=== PATIENT | female | born 1995 | race Caucasian/White ===

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

== ENCOUNTER 2017-07-28 19:56 | Emergency (ER) | payer OTHER ==
--- NOTE | 2017-07-28 20:54 | ED UPPER/LOWER EXTREMITY COMPL ---
History of Present Illness General Chief Complaint: Laceration Procedure Stated Complaint: L INDEX FINGER LAC Source: patient Exam Limitations: no limitations Vital Signs & Intake/Output Vital Signs & Intake/Output Vital Signs Date Time Temp Pulse Resp B/P B/P Pulse O2 O2 Flow FiO2 Mean Ox Delivery Rate 07/28 2125 98.0 82 20 126/87 98 Room Air 07/28 2054 98.2 80 16 118/70 98 Room Air Room Air Allergies Coded Allergies: No Known Allergies (07/28/17) Reconcile Medications No Known Home Medications Triage Nurses Notes Reviewed? yes Onset: Abrupt Duration: constant Timing: single episode today Severity: moderate Severity Numbers: 5 : No Patient currently breastfeeds: No HPI: Patient is a 21-year-old female who presents to emergency room stating that today she actually cut the distal aspect of her left second digit index finger with a knife resulting in a skin avulsion and bleeding was controlled prior to arrival. Patient states that tetanus is up-to-date. Patient is right arm dominant. (Ivan Handy) Past History Travel History Traveled to [place] past 21 day No Medical History Any Pertinent Medical History? none Neurological: NONE EENT: NONE Cardiovascular: NONE Respiratory: NONE Gastrointestinal: NONE Hepatic: NONE Renal: NONE Musculoskeletal: NONE Psychiatric: NONE Endocrine: NONE Blood Disorders: NONE Cancer(s): NONE RUBBER OFF/Reproductive: NONE Surgical History Surgical History: non-contributory Psychosocial History What is your primary language Guatemalan Tobacco Use: Never used ETOH Use: denies use Illicit Drug Use: denies illicit drug use Family History Hx Contributory? No (Ivan Handy) Review of Systems Review of Systems Constitutional: Reports: no symptoms. EENTM: Reports: no symptoms. Respiratory: Reports: no symptoms. Cardiovascular: Reports: no symptoms. Gastrointestinal/Abdominal: Reports: no symptoms. Genitourinary: Reports: no symptoms. Musculoskeletal: Reports: see HPI. Skin: Reports: see HPI. Neurological/Psychological: Reports: no symptoms. Hematologic/Endocrine: Reports: see HPI. Immunological: Reports: no symptoms. All Other Systems: Reviewed and Negative (Ivan Handy) Physical Exam Physical Exam General Appearance: no apparent distress, alert, comfortable Head: atraumatic Eyes: Bilateral: normal appearance. Ears, Nose, Throat: hearing grossly normal Neck: normal inspection Cardiovascular/Respiratory: no respiratory distress Peripheral Pulses: 2+ radial (L) Neurologic/Tendon: normal sensation, normal motor functions, normal tendon functions, responds to pain, no evidence tendon injury, no pulse deficit Skin: normal color Diagram Hands Front 1) Noted 8 mm superficial skin avulsion with no exposed bone no exposed tendon. The range of motion with flexion and extension full resisted range of motion with flexion and extension no tendon deficit (Ivan Handy) Progress Differential Diagnosis: arterial insufficiency, compartment syndrome, contusion, dislocation, DVT, fracture, gout, septic arthritis, sprain, tendon injury Plan of Care: Due to history of present illness and exam findings there is no suspicion of fracture or tendon deficit. The wound was irrigated with sterile water and peroxide. I applied one layer of KALTOSTAT with bandage. PRE/Post neurovascular was intact Bleeding was controlled prior to discharge (Ivan Handy) Departure Departure Disposition: HOME OR SELF CARE Condition: Stable Clinical Impression Primary Impression: Avulsion of skin of index finger Referrals: Patient Has No Primary Care Dr (PCP/Family) Additional Instructions: As discussed APPLY bacitracin to the region once today with the extra bandages provided TO YOU IN the emergency room. If you note signs of infection redness, pain, swelling, discharge or return to the emergency room. Keep area dry and clean YOU can If bleeding does not stop after 15 minutes return to the emergency room Departure Forms: Customer Survey General Discharge Information Industrial Accident Report Prescriptions: Current Visit Scripts No Known Home Medications (Ivan Handy) PA/SEED SALES MANAGER Co-Sign Statement Statement: ED Attending supervision documentation- I saw and evaluated the patient. I have also reviewed all the pertinent lab results and diagnostic results. I agree with the findings and the plan of care as documented in the PA's/SEED SALES MANAGER's documentation. x I have reviewed the ED Record and agree with the PA's/SEED SALES MANAGER's documentation. [] Additions or exceptions (if any) to the PAs/SEED SALES MANAGER's note and plan are summarized below: [] (Jacek CASTELLANO,Tre)
[2017-07-28 21:26] VITALS: BP 126/87
== END 2017-07-28 21:34 ==
LOC: ERH 19:56
DX: S61.211A Laceration without foreign body of left index finger without damage to nail, initial encounter (principal); W26.0XXA Contact with knife, initial encounter; Y92.9 Unspecified place or not applicable; Y93.9 Activity, unspecified